=== PATIENT | female | born 2000 | race Asian ===

== ENCOUNTER 2019-07-06 16:24 | Emergency (ER) | payer OTHER ==
[~2019-07-06] VITALS: Ht 172.7 cm; Wt 68.0 kg
[2019-07-06] MEDS ORDERED: SYNTHROID50 MCG (16:44)
[2019-07-06] MEDS ORDERED: DOLOGEN CAPLET1 EACH PO (21:27)
[2019-07-06] MEDS ORDERED: OSEL75CA PO (21:27)
[2019-07-06] MEDS ORDERED: TUSNEL LIQUID178 ML PO (21:27)
== END 2019-07-06 21:34 | disposition home or self-care (01) ==
LOC: ER 16:24
DX: B34.9 Viral infection, unspecified (principal)

== ENCOUNTER 2019-07-09 08:44 | Emergency (ER) | payer OTHER ==
[~2019-07-09] VITALS: Ht 172.7 cm; Wt 65.8 kg
[~2019-07-09 08:44] MED LIST: DOLOGEN CAPLET1 EACH PO; OSEL75CA PO; SYNTHROID50 MCG; TUSNEL LIQUID178 ML PO
== END 2019-07-09 10:59 | disposition home or self-care (01) ==
LOC: ER 08:44
DX: J11.1 Influenza due to unidentified influenza virus with other respiratory manifestations (principal)